=== PATIENT | female | born 1945 | race Caucasian/White ===

== ENCOUNTER 2017-08-30 12:53 | Outpatient (CLI) | payer MEDICARE ==
--- NOTE | 2017-08-30 15:24 | PET ---
WHOLE BODY BRAIN PET IMAGING FOR DEMENTIA: HISTORY: Senile degeneration of the brain. COMPARISON: None. TECHNIQUE: The patient was administered 11.96 mCi of [id number]. FINDINGS: There is decreased metabolic activity involving the anterior and mid cingulate gyrus. There is sligh t decreased hypermetabolic activity in bilateral occipital and temporal lobes. IMPRESSION: Hypometabolism involving the anterior mid cingulate gyrus as well as bilateral temporal and parietal lobes. POS: [facility]
== END 2017-08-30 12:54 | disposition home or self-care (01) ==
LOC: PET 12:53
PROVIDERS: ATTEND Psychiatry & Neurology Neurology
DX: G31.1 Senile degeneration of brain, not elsewhere classified (principal)
CPT/HCPCS: 78608; A9552

== ENCOUNTER 2017-11-08 13:29 | Emergency (ER) | payer MEDICARE ==
--- NOTE | 2017-11-08 14:40 | RAD ---
THREE VIEWS RIGHT HAND: Comparison: None. History: Tripped and fell with hand pain. FINDINGS: Three views of the right hand shows no evidence of acute fracture or dislocation. Mild joint space na rrowing is seen in the interphalangeal joints of the fingers and in the thumb metacarpal phalangeal j oint consistent with osteoarthritis. IMPRESSION: 1. No evidence of acute osseous abnormality. 2. 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 POS: [facility]
--- NOTE | 2017-11-08 14:57 | CT ---
CT BRAIN WITHOUT CONTRAST: Comparison: None. History: Trip and fall, head trauma. Technique: Multiple contiguous axial images were obtained in a CT of the brain without contrast. FINDINGS: The brain is normal in morphology and attenuation without focal lesions or confluent areas of infarct . There is no evidence of hydrocephalus, intracranial hemorrhage, or extraaxial fluid collection. The calvarium and overlying soft tissues are unremarkable. The visualized paranasal sinuses and masto id air cells are well aerated. No evidence of acute intracranial abnormality. POS: [facility]
--- NOTE | 2017-11-08 15:00 | CT ---
TWO VIEWS CERVICAL SPINE WITHOUT CONTRAST: Comparison: None. History: Trip and fall with head trauma, neck pain. Technique: Multiple contiguous axial images were obtained in a CT of the cervical spine without contr ast. Sagittal and coronal reformats were performed. FINDINGS: There are moderate degenerative changes of the cervical spine. Vertebral bodies demonstrate normal he ight and alignment without fracture or subluxation. No prevertebral soft tissue swelling is seen. Posterior facets are well aligned. Normal alignment of the skull base with the cervical spine is seen . IMPRESSION: 1. Moderate degenerative changes of the cervical spine without acute osseous abnormality. POS: [facility]
[2017-11-08 15:52] LABS: #Eosinphils 0.2 thou/uL (0.0-0.7); #Lymphocytes 3.1 thou/uL (1.20-3.40); #Monocytes 0.4 thou/uL (0.11-0.59); #Neutrophils 5.3 thou/uL (1.40-6.50); %Basophils 0.5 % (0.0-1.0); %Eosinophils 1.7 % (0.0-10.0); %Lymphocytes 34.3 % (21.0-51.0); %Monocytes 4.9 % (0.0-10.0); %Neutrophils 58.6 % (42.0-75.0); Hemoglobin 14.3 g/dL (12.0-16.0); Mean Corpuscular HGB CONC 33.7 g/dL (32.0-36.0); Mean Corpuscular Hemoglobin 31.6 pg (27.0-31.0); Mean Corpuscular Volume 93.8 fl (81.0-99.0); Mean Platelet Volume 7.2 fL (7.4-10.4); Platelet Count 321 thou/uL (130-400); RBC Distribution Width 11.5 % (11.5-14.5); Red Blood Cell (RBC) Count 4.51 mill/uL (4.20-5.40)
[2017-11-08 16:15] LABS: ALT (SGPT) 37 U/L (8-55); AST (SGOT) 29 U/L (5-34); Albumin 4.1 g/dL (3.4-4.8); Alkaline Phosphatase 68 U/L (40-150); Anion Gap 13 mmol/L (10-20); BUN (Urea Nitrogen) 11 mg/dL (9.8-20.1); Bilirubin, Total 0.6 mg/dL (0.2-1.2); Calc. Creatinine Clearance 0 mL/min (70-130); Calcium 9.5 mg/dL (7.8-10.44); Carbon Dioxide 25 mmol/L (23-31); Chloride 100 mmol/L (98-107); Estimated GFR-MDRD 82; Globulin 3.2 g/dL (2.4-3.5); Glucose 148 mg/dL (80-115); Potassium 3.9 mmol/L (3.5-5.1); Protein, Total 7.3 g/dL (6.0-8.3); Sodium 134 mmol/L (136-145)
[2017-11-08 16:18] LABS: CKMB 1.1 ng/mL (0-6.6); Troponin I 0.051 ng/mL (< 0.028)
--- NOTE | 2017-11-12 17:47 | EKG ---
Test Reason : FALL Blood Pressure : / mmHG Vent. Rate : 054 BPM Atrial Rate : 054 BPM P-R Int : 152 ms QRS Dur : 084 ms QT Int : 434 ms P-R-T Axes : 033 055 035 degrees QTc Int : 411 ms Sinus bradycardia Otherwise normal ECG Confirmed by JENNIFER SAUER, LEIA ([id number]), non linear editor EKTA GEORGE ([id number]) on 11/12/2017 5:46:14 PM Referred By: Confirmed By:LEIA RODRIGUEZ MD
== END 2017-11-08 15:52 | disposition home or self-care (01) ==
LOC: ERS 13:29
DX: S16.1XXA Strain of muscle, fascia and tendon at neck level, initial encounter (principal); S60.222A Contusion of left hand, initial encounter; S00.81XA Abrasion of other part of head, initial encounter; I10 Essential (primary) hypertension; W10.1XXA Fall (on)(from) sidewalk curb, initial encounter
CPT/HCPCS: 36415; 70450; 72125; 80053; 82553; 84484; 85025; 93005